=== PATIENT | female | born 1965 | race Caucasian/White ===

== ENCOUNTER 2018-06-15 09:29 | Emergency (ER) | payer BC ==
[2018-06-15 09:57] VITALS: RESP 18; TEMP 97.2
[2018-06-15] MEDS ORDERED: KETOROLAC 30 MG/ML 1 ML VIAL IVP STA (10:14)
--- NOTE | 2018-06-15 10:53 | US ---
EXAMINATION TYPE: US venous doppler duplex LE LT DATE OF EXAM: 06/15/2018 10:03 AM COMPARISON: NONE CLINICAL HISTORY: Pain. Left leg pain SIDE PERFORMED: Left TECHNIQUE: The lower extremity deep venous system is examined utilizing real time linear array sonog jaron with graded compression, doppler sonography and color-flow sonography. VESSELS IMAGED: External Iliac Vein (EIV) Common Femoral Vein Deep Femoral Vein Greater Saphenous Vein * Femoral Vein Popliteal Vein Small Saphenous Vein * Proximal Calf Veins (* superficial vessels) Left Leg: Negative for DVT IMPRESSION: 1. No diagnostic evidence of DVT as visualized.
--- NOTE | 2018-06-15 11:53 | ED ---
Lower Extremity Injury HPI - General Chief Complaint: Extremity Injury, Lower Stated Complaint: Leg pain Time Seen by Provider: 06/15/18 09:29 Source: patient, EMS, RN notes reviewed Mode of arrival: EMS Limitations: no limitations - History of Present Illness Initial Comments: This a 53-year-old female who was walking down steps when she suddenly had s evere sharp left-sided Lateral knee pain. She believes she pulled something in her calf. She has no prior injuries here. No history of Hernandez's cyst. No history DVT. No trauma reported other than walking down steps. She was brought in by EMS. MD Complaint: knee injury - Related Data Home Medications Medication Instructions Recorded Confirmed Baclofen [Lioresal] 20 mg PO BID PRN 06/15/18 06/15/18 Carvedilol 12.5 mg PO BID 06/15/18 06/15/18 Cholecalciferol (Vitamin D3) 2,000 unit PO DAILY 06/15/18 06/15/18 [Vitamin D3] Ferrous Sulfate [Feosol] 325 mg PO DAILY 06/15/18 06/15/18 Flaxseed Oil 1,000 mg PO DAILY 06/15/18 06/15/18 Folic Acid (Unknown Dose) 1 tab PO DAILY 06/15/18 06/15/18 Gabapentin [Neurontin] 300 mg PO BID 06/15/18 06/15/18 Naproxen 500 mg PO BID PRN 06/15/18 06/15/18 Sertraline [Zoloft] 100 mg PO DAILY 06/15/18 06/15/18 Triamterene/Hydrochlorothiazid 1 tab PO DAILY 06/15/18 06/15/18 [Triamterene-Hctz 75-50 mg Tab] Vitamin B Complex 1 cap PO DAILY 06/15/18 06/15/18 amLODIPine BESYLATE 10 mg PO DAILY 06/15/18 06/15/18 glipiZIDE [Glucotrol] 5 mg PO DAILY 06/15/18 06/15/18 Previous Rx's Medication Instructions Recorded Orphenadrine [Norflex] 100 mg PO Q12H #14 tablet.er 06/15/18 Allergies Allergy/AdvReac Type Severity Reaction Status Date / Time codeine Allergy Unknown Verified 06/15/18 09:51 Childhood Review of Systems ROS Statement: Those systems with pertinent positive or pertinent negative responses have been documented in the HPI. ROS Other: All systems not noted in ROS Statement are negative. 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 History of Any Multi-Drug Resistant Organisms: None Reported Past Surgical History: Section, Cholecystectomy Additional Past Surgical History / Comment(s): 8 ear surgery to remove mastoid bones (shunt placement,) grafts in ears, shunt revision, carpal tunnel surgery Past Psychological History: No Psychological Hx Reported Smoking Status: Never smoker Past Alcohol Use History: None Reported Past Drug Use History: None Reported General Exam - General Exam Comments Initial Comments: This is a well-developed well-nourished awake alert oriented 3 female Limitations: no limitations General appearance: alert, anxious Head exam: Present: atraumatic, normocephalic, normal inspection Neck exam: Present: normal inspection. Absent: tenderness, meningismus, lymphadenopathy Respiratory exam: Present: normal lung sounds bilaterally. Absent: respiratory distress, wheezes, rales, rhonchi, stridor Cardiovascular Exam: Present: regular rate, normal rhythm, normal heart sounds. Absent: systolic murmur, diastolic murmur, rubs, gallop, clicks GI/Abdominal exam: Present: soft, normal bowel sounds. Absent: distended, tenderness, guarding, rebound, rigid Extremities exam: Present: full ROM, tenderness, normal capillary refill, calf tenderness (Examination left lower 7 x-ray tennis palpation of the proximal lateral aspect of the calf also the popliteal fossa and lower hamstring musculature. No obvious defect no erythema no obvious swelling noted. No pathology proximal or distal.) Back exam: Present: normal inspection, full ROM. Absent: tenderness Neurological exam: Present: alert, oriented X3, CN II-XII intact Psychiatric exam: Present: normal affect, normal mood Skin exam: Present: warm, dry, intact, normal color. Absent: rash Course Vital Signs 06/15/18 06/15/18 09:49 11:30 Temperature 97.2 F L Pulse Rate 92 73 Respiratory 18 18 Rate Blood Pressure 122/71 133/55 O2 Sat by Pulse 99 96 Oximetry - Reevaluation(s) Reevaluation #1: 06/15/18 11:53 Patient initially did not want any pain medication she did later request some and was given some IV. Medical Decision Making - Medical Decision Making Patient's presentation consistent with musculoskeletal injury he states that area unknown at this time patient will be discharged follow-up with her doctor. The patient does have Naprosyn at home also has baclofen but will be tried on Norflex. She's been a follow-up with her doctor he referred to orthopedics. Patient be place a knee immobilizer and crutches. - Radiology Data Radiology results: report reviewed (I did review the imaging and reports no acute findings.), image reviewed Disposition Clinical Impression: Pressure injury of deep tissue of left calf Disposition: HOME SELF-CARE Condition: Good Instructions (If sedation given, give patient instructions): Knee Pain (ED) Additional Instructions: Ice 24-48 hours to affected area, crutches, no weightbearing, follow-up with your doctor for orthopedic referral. Prescriptions: Orphenadrine [Norflex] 100 mg PO Q12H #14 tablet.er Is patient prescribed a controlled substance at d/c from ED?: No Referrals: Nonstaff,Physician [Primary Care Provider] - 1-2 days
--- NOTE | 2018-06-15 12:00 | XR ---
EXAMINATION TYPE: XR knee complete LT DATE OF EXAM: 06/15/2018 COMPARISON: NONE HISTORY: Pain TECHNIQUE: Four views are submitted. FINDINGS: Joint spaces are preserved. Osseous structures are intact. No acute fracture seen. Small suprapate llar bursal fluid collection. Tiny spur at the upper margin of the patella. IMPRESSION: 1. No acute fracture or dislocation. Small suprapatellar bursal fluid collection. If there is concer n for internal derangement of the knee correlate with MRI.
[2018-06-15 12:30] VITALS: BP 133/55; PULSE 73
== END 2018-06-15 12:50 | disposition home or self-care (01) ==
LOC: EC 09:29
DX: S86.902A Unspecified injury of unspecified muscle(s) and tendon(s) at lower leg level, left leg, initial encounter (principal); Z90.49 Acquired absence of other specified parts of digestive tract; Z98.890 Other specified postprocedural states; Z79.84 Long term (current) use of oral hypoglycemic drugs; Z79.899 Other long term (current) drug therapy; Z88.5 Allergy status to narcotic agent; X58.XXXA Exposure to other specified factors, initial encounter; Y93.01 Activity, walking, marching and hiking
CPT/HCPCS: 96374; 99284

== ENCOUNTER → 2019-04-26 | Outpatient (CLI) | payer BC ==
[2019-04-26 08:07] LABS: Basophils % (A) 0 %; Eosinophils # (A) 0.3 k/uL (0-0.7); Eosinophils % (A) 3 %; HCT 37.2 % (34.0-46.0); HGB 12.1 gm/dL (11.4-16.0); Lymphocytes # (A) 1.4 k/uL (1.0-4.8); Lymphocytes % (A) 17 %; MCH 26.4 pg (25.0-35.0); MCHC 32.7 g/dL (31.0-37.0); MCV 80.9 fL (80.0-100.0); Mean Platelet Volume 7.3; Monocytes # (A) 0.5 k/uL (0-1.0); Monocytes % (A) 6 %; Neutrophils % (A) 71 %; Platelet Count 224 k/uL (150-450); RDW 13.9 % (11.5-15.5); WBC 8.4 k/uL (3.8-10.6)
[2019-04-26 11:45] LABS: Albumin 4.5 g/dL (3.80-4.90); Albumin/Globulin Ratio 2.14 (1.60-3.17); Anion Gap 9.8 mmol/L (4.00-12.00); Calcium 9.5 mg/dL (8.7-10.3); Carbon Dioxide 30.2 mmol/L (21.6-31.8); Chol/HDL Ratio 3.32; Globulin 2.1 g/dL (1.6-3.3); LDL Cholesterol,Calculated 49.6 mg/dL (0.0-131.0); Non-African American GFR(CKD) 64.7 (60.0-200.0); Potassium 3.9 mmol/L (3.5-5.5); Total Bilirubin 0.5 mg/dL (0.3-1.2); Total Protein 6.6 g/dL (6.2-8.2); VLDL Calculation 29.4 mg/dL (5.00-40.00)
[2019-04-26 13:28] LABS: Hemoglobin A1C 6.5 % (4.0-6.0)
== END | disposition home or self-care (01) ==
LOC: LABWHC1 07:42
DX: I10 Essential (primary) hypertension (principal); D64.9 Anemia, unspecified; E11.9 Type 2 diabetes mellitus without complications; E78.1 Pure hyperglyceridemia
CPT/HCPCS: 36415; 80053; 80061; 83036; 84443; 85025

== ENCOUNTER → 2021-01-15 | Outpatient (CLI) | payer BC ==
[2021-01-15 19:50] LABS: HCT 39.3 % (37.2-46.3); HGB 12.1 g/dL (12.0-15.0); MCH 25.4 pg (27.0-32.0); MCHC 30.8 g/dL (32.0-37.0); MCV 82.4 fL (80.0-97.0); Mean Platelet Volume 9.4 fL (9.5-12.2); Platelet Count 227 X 10*3/uL (140-440); RBC 4.77 X 10*6/uL (4.10-5.20); RDW 13.2 % (11.5-14.5); WBC 7.44 X 10*3/uL (4.50-10.00)
[2021-01-15 20:06] LABS: % Iron Saturation 13.53 (12.00-45.00); Chol/HDL Ratio 3.55 Ratio; HDL Cholesterol 42.5 mg/dL (40.00-60.00); LDL Cholesterol,Calculated 59.9 mg/dL (0.0-131.0); VLDL Calculation 48.6 mg/dL (5.00-40.00)
== END | disposition home or self-care (01) ==
LOC: LABWHC1 11:52
PROVIDERS: ATTEND Internal Medicine
DX: E11.9 Type 2 diabetes mellitus without complications (principal); D64.9 Anemia, unspecified
CPT/HCPCS: 36415; 80061; 82728; 83036; 83540; 83550; 85027

== ENCOUNTER 2021-11-20 13:14 | Emergency (ER) | payer BC ==
[2021-11-20 14:30] VITALS: BP 144/84; PULSE 88; RESP 20
--- NOTE | 2021-11-20 15:02 | ED ---
Lower Extremity Injury HPI - General Chief Complaint: Extremity Injury, Lower Stated Complaint: rt foot injury Time Seen by Provider: 11/20/21 14:58 Source: patient, RN notes reviewed Mode of arrival: ambulatory Limitations: no limitations - History of Present Illness Initial Comments: 56-year-old female presents emergency Department chief complaint right foot pain. Patient states she has some bruising. She states she has neuropathy and states she has decreased sensation but she knew she had an injury she still able to ambulate. She states it chair dropped on her foot. For right foot. Patient offers no other complaints. - Related Data Home Medications Medication Instructions Recorded Confirmed Baclofen [Lioresal] 20 mg PO BID PRN 06/15/18 06/15/18 Cholecalciferol (Vitamin D3) 2,000 unit PO DAILY 06/15/18 06/15/18 [Vitamin D3] Ferrous Sulfate [Feosol] 325 mg PO DAILY 06/15/18 06/15/18 Folic Acid (Unknown Dose) 1 tab PO DAILY 06/15/18 06/15/18 Gabapentin [Neurontin] 300 mg PO BID 06/15/18 06/15/18 Naproxen 500 mg PO BID PRN 06/15/18 06/15/18 Sertraline [Zoloft] 100 mg PO DAILY 06/15/18 06/15/18 Triamterene/Hydrochlorothiazid 1 tab PO DAILY 06/15/18 06/15/18 [Triamterene-Hctz 75-50 mg Tab] Vitamin B Complex 1 cap PO DAILY 06/15/18 06/15/18 amLODIPine BESYLATE 10 mg PO DAILY 06/15/18 06/15/18 carvediloL [Carvedilol] 12.5 mg PO BID 06/15/18 06/15/18 flaxseed oiL [Flaxseed Oil] 1,000 mg PO DAILY 06/15/18 06/15/18 glipiZIDE [Glucotrol] 5 mg PO DAILY 06/15/18 06/15/18 Previous Rx's Medication Instructions Recorded Orphenadrine [Norflex] 100 mg PO Q12H #14 tablet.er 06/15/18 Review of Systems ROS Statement: Those systems with pertinent positive or pertinent negative responses have been documented in the HPI. ROS Other: All systems not noted in ROS Statement are negative. 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 History of Any Multi-Drug Resistant Organisms: None Reported Past Surgical History: Section, Cholecystectomy Additional Past Surgical History / Comment(s): 8 ear surgery to remove mastoid bones (shunt placement,) grafts in ears, shunt revision, carpal tunnel surgery Past Psychological History: No Psychological Hx Reported Past Alcohol Use History: None Reported Past Drug Use History: None Reported General Exam Limitations: no limitations General appearance: alert, in no apparent distress Head exam: Present: atraumatic, normocephalic, normal inspection Respiratory exam: Present: normal lung sounds bilaterally. Absent: respiratory distress, wheezes, rales, rhonchi, stridor Cardiovascular Exam: Present: regular rate, normal rhythm, normal heart sounds. Absent: systolic murmur, diastolic murmur, rubs, gallop, clicks Extremities exam: Present: other (Right foot there is ecchymosis just proximal to his second third and fourth digit of the right foot neurovascular intact mild tenderness) Course Vital Signs 11/20/21 14:26 Pulse Rate 88 Respiratory 20 Rate Blood Pressure 144/84 O2 Sat by Pulse 94 L Oximetry Medical Decision Making - Medical Decision Making X-rays negative for acute fracture. Patient we discharged stable condition patient is right foot contusion return parameters were discussed. Disposition Clinical Impression: Contusion of right foot Disposition: HOME SELF-CARE Condition: Stable Instructions (If sedation given, give patient instructions): Foot Contusion (ED) Additional Instructions: Please return to the Emergency Department if symptoms worsen or any other concerns. Is patient prescribed a controlled substance at d/c from ED?: No Referrals: Usman Buenrostro DO [Primary Care Provider] - 1-2 days Time of Disposition: 15:02
--- NOTE | 2021-11-21 15:55 | XR ---
EXAMINATION TYPE: XR foot complete RT DATE OF EXAM: 11/20/2021 CLINICAL HISTORY: Bruising and pain after injury. TECHNIQUE: Frontal, lateral, and oblique images of the right foot are obtained. COMPARISON: None FINDINGS: There is no acute fracture/dislocation evident in the right foot. Moderate narrowing first metatarsophalangeal joint with mild to moderate peripheral spurring. Small to moderate size inferio r calcaneal spur. Mild diffuse subcutaneous edema is present. IMPRESSION: There is no acute fracture or dislocation in the right foot. Preliminary report provided by on site radiologist.
== END 2021-11-20 15:09 | disposition home or self-care (01) ==
LOC: EC 13:14
DX: S90.31XA Contusion of right foot, initial encounter (principal); W20.8XXA Other cause of strike by thrown, projected or falling object, initial encounter
CPT/HCPCS: 99283